=== PATIENT | female | born 1960 | race Caucasian/White ===

== ENCOUNTER → 2022-11-05 07:50 | Outpatient (POV) | payer BC, SELFPAY | PROVIDERS: Visit Provider Dermatology | DX: Z00.00 Encounter for general adult medical examination without abnormal findings (principal) ==

== ENCOUNTER 2023-12-10 12:50 | Outpatient (CLI) | payer BC, SELFPAY ==
--- NOTE | 2023-12-10 12:50 | US_ITS ---
PROCEDURE: US TRANSVAGINAL CLINICAL INDICATION: endometrial cells on pap COMPARISON: No exams were available for comparison FINDINGS: Transvaginal sonographic images of the pelvis were obtained. UTERUS: 5.2cm x 3.8 cmx 2.6 cm midline with a combined endometrial thickness of 6.7mm. Difficult examination. There is a fluid-filled area within the cervix. There is thickening of the wall of the cervix here. This entire area measures 1.2 cm x 1.5 cm x 1.9 cm. LEFT OVARY: 1.4cmx1.0cmx0.9cm with a volume of 0.7ml. RIGHT OVARY: 1.4cmx 0.9 cmx0.9 cm with a volume of 0.6ml. Both ovaries are seen and appear atrophic. Doppler flow to both ovaries are seen. There is no fluid in the cul-de-sac. IMPRESSION: 1. Midline uterus difficult to evaluate due to position. The endometrium measures 4.7-6.7 mm. There is an area in the cervix that measures 1.2 cm x 1.5 cm x 1.9 cm. There is fluid within this area and the wall seems to be thickened. 2. Both ovaries are seen and appear atrophic. 3. No fluid in the cul-de-sac. Dictated by: Ralph Calixto MD 12/11/2023 16:16 Ralph Calixto MD in [place] 12/11/2023 16:16
== END 2023-12-10 23:59 | disposition home or self-care (01) ==
LOC: RAD 12:50
PROVIDERS: PCP Family Medicine; Visit Provider Obstetrics & Gynecology
DX: R87.619 Unspecified abnormal cytological findings in specimens from cervix uteri (principal)
CPT/HCPCS: 76830

== ENCOUNTER 2023-12-25 09:50 | Outpatient (CLI) | payer BC, SELFPAY ==
[2023-12-25 10:18] LABS: Basophils # 0.1 K/mm3 (0-0.2); Basophils % 1.1 % (0.1-2.0); Eosinophils # 0.4 K/mm3 (0.0-0.4); Eosinophils % 4.5 % (0.1-12.0); Hematocrit 42.9 % (37.0-47.0); Hemoglobin 13.8 g/dL (12.2-16.2); Lymphocytes % 19.9 % (10-50); Mean Corpuscular HGB Conc 32.2 g/dL (31.8-35.4); Mean Corpuscular Hemoglobin 30.6 pg (27.0-31.2); Mean Corpuscular Volume 94.9 fl (81-99); Mean Platelet Volume 7.8 fl (7.4-10.4); Monocytes # 0.4 K/mm3 (0.1-1.0); Monocytes % 4.2 % (1.7-9.3); Neutrophils # 6.9 K/mm3 (1.8-7.8); Neutrophils % 70.2 % (37.0-80.0); Platelet Count 371 K/mm3 (142-424); Red Blood Count 4.52 M/mm3 (4.20-5.40); Red Cell Distribution Width 13.1 % (11.5-17.5); White Blood Count 9.8 K/mm3 (4.8-10.8)
[2023-12-25 11:11] LABS: Alanine Aminotransferase 29 U/L (12-78); Albumin Level 4.6 g/dl (3.5-5.0); Albumin/Globulin Ratio 1.4 (1.1-1.8); Alkaline Phosphatase 125 U/L (38-126); Anion Gap 14.6 mEq/L (5-15); Aspartate Amino Transferase 33 U/L (14-36); Bilirubin,Total 0.5 mg/dl (0.2-1.3); Blood Urea Nitrogen 22 mg/dl (7-17); Calcium 9.6 mg/dl (8.4-10.2); Carbon Dioxide 21 mmol/L (22.0-30.0); Chloride 108 mmol/L (98-107); Estimated Glomerular Filt Rate 84 ml/min (>60); GFR (African American) 102 ML/MIN (>60); Globulin 3.3 g/dL (1.3-3.2); Glucose 114 mg/dl (74-100); Potassium 4.6 mmoL/L (3.5-5.1); Sodium 139 mmol/L (136-145); Total Protein,Serum 7.9 g/dl (6.3-8.2)
== END 2023-12-25 23:59 | disposition home or self-care (01) ==
LOC: LAB 09:51
PROVIDERS: Visit Provider Obstetrics & Gynecology
DX: R93.89 Abnormal findings on diagnostic imaging of other specified body structures (principal)
CPT/HCPCS: 36415; 80053; 85025

== ENCOUNTER 2023-12-30 07:04 | Day surgery (SDC) | payer BC, SELFPAY ==
[2023-12-26 13:20] VITALS: BMI 41.1
[2023-12-30] VITALS (10 sets, daily range): BP systolic 127–155; BP diastolic 73–105; PULSE 85–105; RESP 16–18; TEMP 36.4–37.1; O2SAT 95–100
[2023-12-30] MEDS: LACTATED RINGERS 1000ML 1,000 ML 25 ML IV (07:42)
--- NOTE | 2023-12-30 09:39 | EXP.ANES.CKL ---
[facility] Disclaimer: The information contained in this section may have been updated after the patient was seen, as this information can be updated by other users. Medical History High cholesterol High blood pressure Surgical History H/O shoulder surgery Delivery by section Status post left foot surgery H/O hernia repair Family History (Updated 12/30/23 @ 07:26 by Federica Grant RN) Other Family history of cancer Family history of diabetes mellitus type II Family history of hyperlipidemia Family history of hypertension Social History (Updated 12/30/23 @ 07:26 by Federica Grant RN) Smoking Status: Never smoker alcohol intake: never substance use type: denies use current occupational status: employed Travel in the last 8 weeks: None [facility] Anesthesia Checklist Patient Identification Patient Identification: Arm Band Structural Data Admitted From: Home Planned Operative Procedure/s: Hysteroscopy, D&C, Myosure Ablation Consent for Planned Operative Procedure(s) Verified: Yes Verified Documents: Surgical Consent and History and Physical NPO Status Verified Time NPO: 00:00 Additional verifications Anesthesia Reactions: No Hx Blood Transfusions: No Blood Transfusion Reaction: No Airway Assessment Mallampati Score:: Class II C-Spine Mobility Assessed: Yes TMJ Mobility Assessed: Yes Dentition: Good Dentition Neurological Assessment Level of Consciousness: Awake, Alert and Appropriate Anesthesia Plan Anesthesia Risk discussed: Yes Anesthesia Plan: Verified ASA Class: III Anesthesia Type: General
--- NOTE | 2023-12-30 09:40 | EXP.ANES.I ---
[facility] Anesthesia Record Part I Anesthesia Record I Intake, IV Amount: 600 Hydration: Adequate Estimated blood loss (mL): 5 Urine output (mL): 0 Blood Products used (#): none Blood Pressure: 155/105 SaO2: 95 Pulse Rate: 88 Airway Patency: Patent Respiratory Rate: 16 Temperature: 98.7 F Patient is:: Drowsy and Stable Stable to PACU at:: 09:35
--- NOTE | 2023-12-30 10:15 | EXP.OP.NOTE ---
Date of procedure: 12/30/23 Pre-op Diagnosis:: 1. Endometrial cells noted on Pap smear, patient older than 45 2. Thickened endometrial stripe 3. Declines in office sampling Post-op Diagnosis:: 1. Endometrial cells noted on Pap smear, patient older than 45 2. Thickened endometrial stripe 3. Declines in office sampling Procedure performed:: Hysteroscopy, dilation, and MyoSure curettage Surgeon:: Vicenta Flor DO GLOVE MACHINE OPERATOR:: Joe Paz Anesthesia: GETA Estimated blood loss (mL): 5 Operative findings:: Findings: -EUA revealed an 6-week anteverted uterus with regular contour. Narrowed vaginal introidus. no significant prolapse or support defects noted. -Hysteroscopy revealed arcuate uterus with relatively thin/atrophic endometrial lining. Operative note:: The patient was taken back to the OR where general anesthesia was obtained.? She was placed in the dorsal lithotomy position using yellow fin stirrups and sterilely prepped and draped in the usual fashion.? An in and out catheter was used to drain her bladder.? A timeout was performed.? A weighted speculum was used to visualize this cervix, a single-tooth tenaculum was applied to the anterior lip of the cervix. The cervix was only slightly dilated to allow entry to the ectocervix and hydrodisection was used to get the scope the rest of the way into the cavity. The hysterscope was inserted and a large polyp was noted as described above. Images were obtained of the cavity. The tubal ostia were obscured by the polyp and not easily visible.? Decision was made to proceed with the MyoSure for polypectomy. Device set up, primed and zeroed. The device was used to resect the outer edge of the polyp until the complete polyp was removed down to the base. At the conclusion of the procedure there was a fluid deficit of 100mLs. Total myosure cutting time was 1minutes 10seconds. Following complete removal of the polyps the MyoSure hysteroscope was removed.? A #2 sharp curette was introduced through the cervical os and gently advanced to the fundus.? The endometrial cavity was sharply curetted 360 degrees.? Endometrial curettings were collected on a Telfa pad, passed off the operative field and sent to pathology for further evaluation.? Given the very thin atrophic endometrium it was difficult to get an adequate uterine sample. The single-tooth tenaculum was removed and hemostasis was noted at the tenaculum sites.? All instruments were removed from the vagina.? All counts were correct, per nursing.? This concluded the procedure, the patient was awakened from anesthesia, and transferred to the PACU in stable condition. Condition: stable Disposition: PACU Specimens:: Endometrial curettings Complications:: None
--- NOTE | 2023-12-30 10:56 | SUR.PHASEII ---
Premarin vaginal cream ordered by Dr. Flor given to pt with instructions nightly x1 week than twice a week thereafter. Peggy Lynne RN given instructions per MD office staff-
--- NOTE | 2023-12-30 12:29 | EXP.ANES.II ---
[facility] Anesthesia Record Part II Anesthesia Record Part II Discharge Time: 10:05 Destination: Surgical Day Care (OP Surgery) PACU nurse assessment reviewed?: Yes Patient Condition:: Good Anesthesia Complications:: None Swallowing reflex intact?: Yes Airway Patency: Patent Cyanosis?: No Blood Pressure: 127/80 SaO2: 100 Respiratory Rate: 16 Pulse Rate: 85 Temperature: 98.7 F Mental Status: Alert & Oriented Pain level:: 2 Nausea and/or vomitting:: None Intake, IV Amount: 0 Hydration: Adequate
== END 2023-12-30 10:58 | disposition home or self-care (01) ==
PROVIDERS: Visit Provider Obstetrics & Gynecology
PROC: (CPT 58558; principal; 2023-12-30 08:45)
DX: N88.8 Other specified noninflammatory disorders of cervix uteri (principal); R87.618 Other abnormal cytological findings on specimens from cervix uteri
CPT/HCPCS: 58558; J1100; J1885; J2250; J2405; J3010; J7120